=== PATIENT | male | born 1995 | race Caucasian/White ===

== ENCOUNTER → 2022-05-13 | Outpatient (REF) ==
--- NOTE | 2022-05-13 12:33 | Diagnostic Imaging Report ---
Indication: Bruising and swelling at the 4th toe. Findings: 3 view left toes performed, no fracture, dislocation or acute periosteal reaction. The alignment normal. In particular the 4th toe showed no acute appearing abnormality. Impression: No acute appearing bony pathology. Dictated by: Dictated on workstation # [id number]
== END | disposition home or self-care (01) ==
LOC: OCC 11:37
PROVIDERS: ATTEND Family Medicine
DX: Z01.818 Encounter for other preprocedural examination (principal)
CPT/HCPCS: 73660